=== PATIENT | female | born 1965 | race Hispanic/Latino ===

== ENCOUNTER 2017-07-27 21:32 | Inpatient (IN) | payer SELFPAY ==
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
[2017-07-27] MEDS ORDERED: traMADol HCl 50 MG TAB PO PRN (22:58)
[2017-07-27] MEDS ORDERED: Ondansetron ODT 4 MG TAB PO PRN (22:59)
[2017-07-27] MEDS ORDERED: Ondansetron HCl/PF 4 MG/2 ML Vial IVP PRN (22:59)
[2017-07-27] MEDS ORDERED: Dextrose 5% in Water 1,000 ML IV PRN (22:59)
[2017-07-27] MEDS ORDERED: Dextrose 50% Abboject 50 ML SYRINGE SLOW IVP PRN (22:59)
--- NOTE | 2017-07-27 23:08 | RAD ---
ONE VIEW RIGHT ANKLE: History: Status post reduction. FINDINGS: No significant change when compared to the previous examination. Fiberglass cast is identified. Frac tures are noted. IMPRESSION: No significant change when compared to 07-27-17 at 10:34 p.m. POS: [facility]
--- NOTE | 2017-07-27 23:09 | RAD ---
RIGHT ANKLE THREE VIEWS: History: Post reduction. Comparison: 07-27-17 FINDINGS: There is evidence of a posterior fiberglass splint. Trimalleolar fracture is re-demonstrated. Mild c omponent subluxation is noted. IMPRESSION: Trimalleolar fracture with subluxation. POS: [facility]
--- NOTE | 2017-07-27 23:28 | RAD ---
One view chest: History: Preoperative exam. Ankle fracture. Comparison: 03-01-10 FINDINGS: Normal cardiac silhouette. The pulmonary vessels and hilum are normal. No masses or consolidation. N o pneumothorax or osseous abnormality. IMPRESSION: No acute cardiopulmonary process. POS: [facility]
[2017-07-27 23:29] LABS: Bilirubin Negative (Negative); Blood, Urine Negative (Negative); Glucose, Urine (Dipstick) Negative (Negative); Ketone, Urine Negative (Negative); Nitrite Negative (Negative); Protein, Urine (Dipstick) Negative (Neg-Trace); Urobilinogen 0.2 mg/dL (0.2-1.0)
[2017-07-28 01:31] VITALS: BMI 29.2
[2017-07-28] MEDS: Acetaminophen 500 MG TAB PO SCH ×5 (01:38→23:23)
[2017-07-28 01:39] LABS: #Basophils 0.1 thou/uL (0.0-0.2); #Lymphocytes 1.7 thou/uL (1.20-3.40); #Monocytes 0.3 thou/uL (0.11-0.59); %Basophils 0.8 % (0.0-1.0); %Eosinophils 0.4 % (0.0-10.0); %Lymphocytes 24.3 % (21.0-51.0); %Monocytes 3.8 % (0.0-10.0); Hematocrit 37.2 % (36.0-47.0); Mean Platelet Volume 6.7 fL (7.4-10.4); Red Blood Cell (RBC) Count 3.78 mill/uL (4.20-5.40)
[2017-07-28] MEDS: traMADol HCl 50 MG TAB PO SCH ×5 (01:40→23:24)
[2017-07-28] MEDS: Ketorolac Tromethamine 30 MG/ML VIAL IVP SCH ×5 (01:41→23:24)
[2017-07-28 01:46] LABS: PTT 28.3 SEC (22.9-36.1); Prothrombin Time 15.2 SEC (12.0-14.7)
[2017-07-28 01:57] LABS: Anion Gap 12 mmol/L (10-20); BUN (Urea Nitrogen) 6 mg/dL (9.8-20.1); Calc. Creatinine Clearance 106 mL/min (70-130); Calcium 8.7 mg/dL (7.8-10.44); Carbon Dioxide 23 mmol/L (22-29); Chloride 104 mmol/L (98-107); Estimated GFR-MDRD Greater than 90; Magnesium 1.9 mg/dL (1.6-2.6); Phosphorus 3.1 mg/dL (2.3-4.7)
[2017-07-28] MEDS: Sodium Chloride 0.9% 1,000 ML IV SCH ×3 (02:56→21:01)
[2017-07-28 03:35] LABS: Amphetamine Not Detected (NotDetected); Methadone Not Detected (NotDetected); Methamphetamine Not Detected (NotDetected)
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
[2017-07-28] MEDS: Folic Acid 1 MG TAB PO SCH (10:33)
[2017-07-28] MEDS ORDERED: Neomycin-Polymyxin 1 ML AMP ONE (15:20)
[2017-07-28] MEDS ORDERED: Midazolam HCl 2 mg/2 ml Vial ONE (15:32)
[2017-07-28] MEDS ORDERED: Fentanyl 100 MCG/2 ML VIAL ONE (15:32)
[2017-07-28] MEDS ORDERED: Propofol 200 MG/20 ML VIAL ONE (15:51)
[2017-07-28] MEDS ORDERED: Ketorolac Tromethamine 30 MG/ML VIAL ONE (15:51)
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
[2017-07-28] MEDS ORDERED: Bupivacaine/Epinephrine 0.5% 10 ML VIAL ONE (16:24)
[2017-07-28] MEDS: Oxazepam 10 MG CAP PO SCH ×3 (17:12→23:24)
[2017-07-28] MEDS ORDERED: Ondansetron HCl/PF 4 MG/2 ML Vial IVP PRN ×2 (17:22→17:27)
[2017-07-28] MEDS ORDERED: Promethazine HCl 25 MG/ML VIAL IM PRN (17:22)
[2017-07-28] MEDS ORDERED: Promethazine HCl 25 MG/ML VIAL SLOW IVP PRN (17:22)
[2017-07-28] MEDS ORDERED: Milk Of Magnesia 30 ML UDCUP PO PRN (17:27)
[2017-07-28] MEDS ORDERED: Fleet Enema 133 ML BOT PR PRN (17:27)
[2017-07-28] MEDS ORDERED: Bisacodyl 10 MG SUPP PR PRN (17:27)
[2017-07-28] MEDS ORDERED: Cepastat Lozenges 1 LOZ PO PRN (17:27)
[2017-07-28] MEDS ORDERED: Ondansetron ODT 4 MG TAB PO PRN (17:27)
--- NOTE | 2017-07-28 19:13 | RAD ---
RIGHT ANKLE THREE VIEWS: HISTORY: A 52-year-old female following ORIF right ankle. COMPARISON: 07/27/2017. FINDINGS/IMPRESSION: Metal plate and screws stabilize the lateral malleolus, and two internal fixation screws stabilize t he medial malleolus with improved position and alignment of the trimalleolar fracture dislocation wh en compared to the prior study. POS: [facility]
--- NOTE | 2017-07-28 20:24 | OP ---
DATE OF PROCEDURE: 07/28/2017 PREOPERATIVE DIAGNOSIS: Status post trimalleolar fracture dislocation, right ankle. POSTOPERATIVE DIAGNOSIS: Status post trimalleolar fracture dislocation, right ankle. PROCEDURE: Open reduction and internal fixation, trimalleolar fracture of the right ankle. SURGEON: Aditya Cole M.D. ANESTHESIA: General. TECHNIQUE: The patient was given preoperative IV antibiotics, taken to the operating room and place d in the supine position. Satisfactory general anesthesia was performed. The right foot, ankle, an d leg were sterilely prepped and draped in the usual fashion. After exsanguination, the tourniquet at the proximal right leg was raised to 200 mmHg. A longitudinal incision was made over the lateral aspect of the ankle over the distal fibula. Blunt and sharp dissection was made down to the distal fibula. The patient was noted to have an oblique fracture. The fracture was held reduced with a carlos ne clamp and initially internally fixed with a 3.5 cortical screw in a lag fashion. A 3-hole distal fibular [employer] locking plate was then inserted over the lateral aspect of the distal [facility] using two 3.5 cortical screws in the shaft of the fibula. Six additional 2.7 locking screws wer e placed distally and a 3.5 locking screw was placed in the most proximal hole. This was all perfor med under fluoroscopic visualization and showed anatomic alignment of the distal fibula fracture. A n incision was made on the medial aspect of the ankle approximately 3.5 cm in length. Blunt and sha rp dissection was made down to the medial malleolus. The fracture was identified, was reduced, held reduced with a small bone clamp and internally fixed with two 4.0 cannulated screws. This also was performed under fluoroscopic visualization. This provided anatomic alignment of the ankle, the pos terior malleolar fracture after the medial and lateral malleoli were reduced and stabilized. [employer] Administrator ior malleolus was found to be in good position and good alignment and did not require internal fixat ion. The wounds were then copiously irrigated with antibiotic solution and the wounds were closed u sing 0 Vicryl for the fat and subcutaneous tissue, and the skin was closed with 3-0 Rapide. The wou nds were then infiltrated with a total of 30 mL of 0.5% Marcaine with epinephrine. Sterile dressing was applied. The patient was placed in a boot. Tourniquet was released. The patient was awakened , extubated, and transferred to the recovery room in stable condition. ESTIMATED BLOOD LOSS: 20 mL COMPLICATIONS: None.
[2017-07-28] MEDS: Senokot S 8.6-50 MG TAB PO SCH (20:53)
[2017-07-28] MEDS: Ferrous Gluconate 324 MG TAB PO SCH (20:53)
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
[2017-07-29] MEDS: Acetaminophen 500 MG TAB PO SCH ×2 (05:41→12:02)
[2017-07-29] MEDS: Oxazepam 10 MG CAP PO SCH ×2 (05:41→12:03)
[2017-07-29] MEDS: traMADol HCl 50 MG TAB PO SCH ×2 (05:42→12:02)
[2017-07-29] MEDS: Ketorolac Tromethamine 30 MG/ML VIAL IVP SCH ×2 (05:43→12:12)
[2017-07-29] MEDS: Sodium Chloride 0.9% 1,000 ML IV SCH (05:51)
[2017-07-29] MEDS: Ferrous Gluconate 324 MG TAB PO SCH (08:27)
[2017-07-29] MEDS: Folic Acid 1 MG TAB PO SCH (08:28)
[2017-07-29] MEDS: Senokot S 8.6-50 MG TAB PO SCH (08:28)
[2017-07-29 08:59] VITALS: BP 128/86; TEMP 98
[2017-07-29] MEDS ORDERED: Multivitamin W/ Minerals 1 TAB PO SCH (09:00)
[2017-07-29] MEDS ORDERED: Ibuprofen 800 MG TAB PO PRN (09:48)
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
--- NOTE | 2017-08-02 11:45 | EKG ---
Test Reason : Blood Pressure : / mmHG Vent. Rate : 073 BPM Atrial Rate : 073 BPM P-R Int : 144 ms QRS Dur : 074 ms QT Int : 408 ms P-R-T Axes : 042 046 043 degrees QTc Int : 449 ms Normal sinus rhythm Normal ECG Confirmed by DONNY KONG, GURINDER ([id number]), news assignment editor MARVIN WELLS ([id number]) on 08/02/2017 11:45:13 AM Referred By: Confirmed By:GURINDER HINES MD
== END 2017-07-29 13:40 | disposition home or self-care (01) | DRG 494 ==
LOC: ERS 21:32 → OBSVTOIN 23:00 → SURG A 23:00
PROVIDERS: ADMIT Surgery; ATTEND Surgery
PROC: 0QSJ04Z Reposition Right Fibula with Internal Fixation Device, Open Approach (ICD-10-PCS; principal; 2017-07-28)
PROC: 0QSG04Z Reposition Right Tibia with Internal Fixation Device, Open Approach (ICD-10-PCS; 2017-07-28)
DX: S82.851A Displaced trimalleolar fracture of right lower leg, initial encounter for closed fracture (principal); I10 Essential (primary) hypertension; F10.120 Alcohol abuse with intoxication, uncomplicated; F17.210 Nicotine dependence, cigarettes, uncomplicated; Y90.8 Blood alcohol level of 240 mg/100 ml or more; Y93.39 Activity, other involving climbing, rappelling and jumping off
CPT/HCPCS: 27818; 71010; 76001; 80048; 80306; 80307; 81003; 83735; 84100; 84703; 85025; 85610; 85730; 93005; C1713; C1769; G0390; G8978-GP-CK; G8979-GP-CK; G8980-GP-CK; J1885; J2250; J2270; J2704; J3010; J3490

== ENCOUNTER 2017-08-16 17:36 | Inpatient (IN) | payer SELFPAY ==
[2017-08-16 18:26] LABS: #Eosinphils 0.1 thou/uL (0.0-0.7); #Lymphocytes 1.6 thou/uL (1.20-3.40); #Monocytes 0.6 thou/uL (0.11-0.59); #Neutrophils 3.2 thou/uL (1.40-6.50); %Basophils 0.9 % (0.0-1.0); %Eosinophils 2.2 % (0.0-10.0); %Lymphocytes 28.2 % (21.0-51.0); %Monocytes 10.2 % (0.0-10.0); Hematocrit 38.7 % (36.0-47.0); Mean Platelet Volume 7.1 fL (7.4-10.4); Red Blood Cell (RBC) Count 3.88 mill/uL (4.20-5.40); White Blood Cell (WBC) Count 5.5 thou/uL (4.8-10.8)
[2017-08-16 18:50] LABS: ALT (SGPT) 44 U/L (8-55); AST (SGOT) 37 U/L (5-34); Alkaline Phosphatase 99 U/L (40-150); Anion Gap 13 mmol/L (10-20); BUN (Urea Nitrogen) 22 mg/dL (9.8-20.1); Bilirubin, Total 0.6 mg/dL (0.2-1.2); Calc. Creatinine Clearance 0 mL/min (70-130); Calcium 9.9 mg/dL (7.8-10.44); Carbon Dioxide 27 mmol/L (22-29); Chloride 104 mmol/L (98-107); Estimated GFR-MDRD 72; Globulin 4.3 g/dL (2.4-3.5); Protein, Total 8.1 g/dL (6.0-8.3)
--- NOTE | 2017-08-16 20:51 | RAD ---
RIGHT ANKLE THREE VIEWS: 08/16/17 HISTORY: Ankle pain. The patient is status post open reduction and internal fixation of a bimalleolar fracture. Medial ma lleolar fracture fixed with screws and plate and screws fixing the distal fibular fracture. There al so appears to be a posterior malleolar fracture present. I do not see any definite acute process. IMPRESSION: Postoperative changes. POS: [facility]
[2017-08-16] MEDS ORDERED: Piperacillin/Tazobactam 3.375 GM in Sodium Chloride 0.9% 100 ML IVPB SCH (21:30)
[2017-08-16] MEDS ORDERED: Ondansetron HCl/PF 4 MG/2 ML Vial IVP PRN (23:41)
[2017-08-16] MEDS ORDERED: Ondansetron ODT 4 MG TAB SL PRN (23:41)
[2017-08-16 23:57] VITALS: BMI 26.4
[2017-08-17] MEDS ORDERED: Morphine 2 MG/ML SYRINGE SLOW IVP PRN (08:15)
[2017-08-17] MEDS ORDERED: Ketorolac Tromethamine 30 MG/ML VIAL IVP PRN (08:20)
--- NOTE | 2017-08-17 09:27 | HP ---
HISTORY OF PRESENT ILLNESS: The patient underwent an ankle repair on 07/28/[address] Aditya Cole . She was doing well until about 3-5 days ago, her granddaughter is over and ran into her leg, slip ped down into her leg and she had some pain in that ankle. She had been cleaning the ankle with hyd rogen peroxide to keep it clean, but it continued to open up and now has some discharge coming from it. She was admitted last night. We gave Dr. Cole a call, but he is out of town. I informed th e patient, thus she is okay with us taking care of her until Dr. Cole returns. PAST MEDICAL HISTORY: Unchanged from her last visit on 07/28/2017. PAST SURGICAL HISTORY: Unchanged from her last visit on 07/28/2017. FAMILY HISTORY: Unchanged from her last visit on 07/28/2017. SOCIAL HISTORY: Unchanged from her last visit on 07/28/2017. MEDICATIONS: Unchanged from her last visit on 07/28/2017. ALLERGIES: Unchanged from her last visit on 07/28/2017. REVIEW OF SYSTEMS: Only complaint is that right ankle. Otherwise, denies chest pain, shortness of breath, bowel or bladder problems. PHYSICAL EXAMINATION: GENERAL: Well-nourished female in no acute distress. Speech is clear. Affect pleasant. Answers q uestions appropriately. She is alert and oriented x3. HEENT: Normal exam. NECK: Supple, trachea midline. EXTREMITIES: Upper extremities, equal size, shape, symmetry, normal bulk and tone, moving well. Lo wer extremities; on the right lateral malleolus, she does have an open wound, probably about a quart er size with some eschar present and a little bit of green clear discharge. Area is tender to palpa tion. She does have some mild erythema above the area. She has got good sensations to the rest of the right lower extremity. DP, PT pulses bilaterally are intact. ASSESSMENT: Right ankle wound infection secondary to surgery on 07/28/2017. PLAN: I spoke with patient. She is okay with us helping her out with this particular situation til kirby Cole returns and further plan is to do an I\T\D washout of that wound. Once it is opened, we will check screws; if they are tight, we will not remove them. If they are loose at all, we may have to remove the entire hardware around that side. We will pack the wound open today and then jazmyne n on wound VAC tomorrow. She has already been placed on some antibiotics. We will probably get jhony e cultures deep once we get in there also. The patient understands the plan and she is amenable to go forth with surgery.
[2017-08-17] MEDS ORDERED: Midazolam HCl 2 mg/2 ml Vial ONE (14:13)
[2017-08-17] MEDS ORDERED: Fentanyl 100 MCG/2 ML VIAL ONE (14:13)
[2017-08-17] MEDS ORDERED: Lidocaine 1% (PF) 30 ML VIAL ONE (15:19)
[2017-08-17] MEDS ORDERED: Ondansetron HCl/PF 4 MG/2 ML Vial ONE (15:42)
[2017-08-17] MEDS ORDERED: Dexamethasone 20 MG/5 ML VIAL ONE (15:42)
[2017-08-17] MEDS ORDERED: Lidocaine 2% PF 10 ML AMP (For Epidural Use) ONE (15:42)
[2017-08-17] MEDS ORDERED: Propofol 200 MG/20 ML VIAL ONE (15:42)
[2017-08-17] MEDS ORDERED: Promethazine HCl 25 MG/ML VIAL IM PRN (16:25)
[2017-08-17] MEDS ORDERED: Ondansetron HCl/PF 4 MG/2 ML Vial IVP PRN (16:25)
[2017-08-17] MEDS ORDERED: HYDROmorphone 2 MG/ML VIAL SLOW IVP PRN (16:25)
[2017-08-17] MEDS ORDERED: Promethazine HCl 25 MG/ML VIAL SLOW IVP PRN (16:25)
[2017-08-17] MEDS: Piperacillin/Tazobactam 3.375 GM, Admixture Fee 1 EACH in Sodium Chloride 0.9% 100 ML IVPB SCH (18:31)
--- NOTE | 2017-08-17 23:19 | OP ---
DATE OF PROCEDURE: 08/17/2017 PROCEDURES PERFORMED: Irrigation and debridement of abscess, right ankle; removal of hardware, righ t ankle. SURGEON: Tommie Fuentes M.D. ANESTHESIA: General. BLOOD LOSS: Minimal. SPECIMEN: Culture. DRAINS: None. COMPLICATIONS: None. DESCRIPTION OF PROCEDURE: The patient was taken to the operating room where general anesthesia was induced. Right leg was prepped and draped in the usual sterile fashion. After exsanguination by el evation, tourniquet was inflated. I debrided the necrotic margins of the wound, hardware was visibl e in the base of the wound to remove fibrinous tissue. I checked the screws and the plate and found 1 screw was the spinner and was loose. This was in the very center of the defect. The screw was r emoved. I left the proximal and distal screws as they appeared to be giving good stability to the f racture and this should enhance the healing. Five liters of irrigation was performed. I did take c ultures prior to irrigation. Tourniquet was released. Irrigation was performed again. Hemostasis was obtained. The wound was left open. Plan is for postoperative wound VAC, I placed on vancomycin and Zosyn.
[2017-08-18] MEDS: Piperacillin/Tazobactam 3.375 GM, Admixture Fee 1 EACH in Sodium Chloride 0.9% 100 ML IVPB SCH ×4 (00:23→19:11)
[2017-08-18] MEDS: Vancomycin HCl 1 GM in Premix Bag 1 BAG IVPB SCH ×2 (02:26→14:31)
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
[2017-08-18] MEDS: HYDROcodone/Acetaminophen 10/325 mg Tablet PO PRN (18:29)
[2017-08-19] MEDS: Piperacillin/Tazobactam 3.375 GM, Admixture Fee 1 EACH in Sodium Chloride 0.9% 100 ML IVPB SCH ×5 (00:23→20:30)
[2017-08-19 02:18] LABS: Vancomycin, Trough 13.8 ug/mL
[2017-08-19] MEDS: Vancomycin HCl 1 GM in Premix Bag 1 BAG IVPB SCH ×3 (03:25→19:09)
[2017-08-19] MEDS: HYDROcodone/Acetaminophen 10/325 mg Tablet PO PRN ×2 (08:29→19:09)
[2017-08-19] MEDS: Multivit, Therapeutic 1 TAB PO SCH (08:32)
[2017-08-19] MEDS: Zinc Sulfate 220 MG CAP PO SCH (08:32)
[2017-08-20] MEDS: Piperacillin/Tazobactam 3.375 GM, Admixture Fee 1 EACH in Sodium Chloride 0.9% 100 ML IVPB SCH ×3 (02:12→13:57)
[2017-08-20] MEDS: Vancomycin HCl 1 GM in Premix Bag 1 BAG IVPB SCH (05:42)
[2017-08-20] MEDS: Multivit, Therapeutic 1 TAB PO SCH (08:04)
[2017-08-20] MEDS: Zinc Sulfate 220 MG CAP PO SCH (08:04)
[2017-08-20 12:17] VITALS: BP 133/87; TEMP 98.5
--- NOTE | 2017-08-20 17:41 | DIS ---
DATE OF ADMISSION: 08/16/2017 DATE OF DISCHARGE: 08/20/2017 HISTORY OF PRESENT ILLNESS: Please see admission history and physical. HOSPITAL COURSE: Patient was initially evaluated in the emergency room, she was noted to have posto perative infection. She was taken to the operating room on 08/17/2017 where she underwent irrigatio n and debridement of the lateral wound of the right ankle. Deep cultures were obtained. The patien t was placed on a wound VAC. The patient remained afebrile and vital signs remained stable during t he entire hospital course. She was started on IV antibiotics. Culture reports came back as Enterob acter cloacae, which was sensitive to multiple antibiotics including Bactrim. The patient was able to control her pain with p.o. medication. She will be discharged today. DISCHARGE MEDICATIONS: Bactrim-DS 1 p.o. b.i.d. #40, Tylenol #4 one every 6 hours as needed for mary n, #40 with one refill. Follow up in my office in 1 week. The patient will continue with local wou nd care. She will continue to be nonweightbearing on the right lower extremity to allow the fractur es in her ankle to heal.
== END 2017-08-20 16:08 | disposition home or self-care (01) | DRG 857 ==
LOC: ERS 17:36 → SURG A 22:10
PROVIDERS: ADMIT Radiology Diagnostic Radiology; ATTEND Radiology Diagnostic Radiology
PROC: 0SPF04Z Removal of Internal Fixation Device from Right Ankle Joint, Open Approach (ICD-10-PCS; principal; 2017-08-16)
DX: T81.4XXA Infection following a procedure, initial encounter (principal); T84.126A Displacement of internal fixation device of bone of right lower leg, initial encounter; I10 Essential (primary) hypertension; L02.415 Cutaneous abscess of right lower limb; B96.89 Other specified bacterial agents as the cause of diseases classified elsewhere
CPT/HCPCS: 36415; 80053; 80202; 83605; 85025; 87040; 87070; 87077; 87186; 87205; 96365; 96367; A4216; J1100; J1885; J2001; J2250; J2270; J2405; J2543; J2704; J3010; J3370; J7050

== ENCOUNTER 2017-08-28 14:44 | Outpatient (CLI) | payer SELFPAY ==
[2017-08-28] MEDS ORDERED: Sodium Chloride 0.9% 15 ML NEB ONE (17:54)
== END 2017-08-28 14:45 | disposition home or self-care (01) ==
LOC: WCC 14:44
PROVIDERS: ATTEND Family Medicine
DX: T81.89XD Other complications of procedures, not elsewhere classified, subsequent encounter (principal)
CPT/HCPCS: 97605; A4218

== ENCOUNTER 2017-09-01 14:14 | Outpatient (CLI) | payer SELFPAY | END 2017-09-01 14:15 | disposition home or self-care (01) | LOC: WCC 14:14 | PROVIDERS: ATTEND Family Medicine | DX: T81.89XD Other complications of procedures, not elsewhere classified, subsequent encounter (principal) | CPT/HCPCS: 97605 ==

== ENCOUNTER 2017-09-11 13:28 | Outpatient (CLI) | payer SELFPAY ==
[~2017-09-11 13:28] MED LIST: Sodium Chloride 0.9% 15 ML NEB ONE
== END 2017-09-11 13:29 | disposition home or self-care (01) ==
LOC: WCC 13:28
PROVIDERS: ATTEND Family Medicine
DX: T81.89XD Other complications of procedures, not elsewhere classified, subsequent encounter (principal)
CPT/HCPCS: 97605; A4218

== ENCOUNTER 2017-09-15 11:55 | Outpatient (CLI) | payer SELFPAY ==
[2017-09-15] MEDS ORDERED: Lidocaine 4% Topical Sol 50 ML BOT ONE (14:51)
[2017-09-15] MEDS ORDERED: Sodium Chloride 0.9% 15 ML NEB ONE (14:51)
== END 2017-09-15 11:56 | disposition home or self-care (01) ==
LOC: WCC 11:55
PROVIDERS: ATTEND Family Medicine
DX: T81.89XD Other complications of procedures, not elsewhere classified, subsequent encounter (principal); S91.001D Unspecified open wound, right ankle, subsequent encounter
CPT/HCPCS: 97605; A4218; J2001

== ENCOUNTER 2017-09-17 07:31 | Outpatient (CLI) | payer SELFPAY ==
[2017-09-17] MEDS ORDERED: Lidocaine 4% Topical Sol 50 ML BOT ONE (17:44)
[2017-09-17] MEDS ORDERED: Sodium Chloride 0.9% 15 ML NEB ONE (17:44)
== END 2017-09-17 07:32 | disposition home or self-care (01) ==
LOC: WCC 07:31
PROVIDERS: ATTEND Family Medicine
DX: T81.89XD Other complications of procedures, not elsewhere classified, subsequent encounter (principal); S91.001D Unspecified open wound, right ankle, subsequent encounter
CPT/HCPCS: 97606; A4218; J2001

== ENCOUNTER 2017-09-19 03:39 | Emergency (ER) | payer SELFPAY ==
[2017-09-19] MEDS ORDERED: Ketorolac Tromethamine 30 MG/ML VIAL ONE (04:16)
[2017-09-19] MEDS ORDERED: Piperacillin/Tazobactam 3.375 GM in Sodium Chloride 0.9% 100 ML IVPB SCH (04:30)
== END 2017-09-19 06:15 | disposition home or self-care (01) ==
LOC: ERS 03:39
DX: L03.115 Cellulitis of right lower limb (principal); I10 Essential (primary) hypertension
CPT/HCPCS: 96365; 96367; 96375; J1885; J2543; J3370; J7050

== ENCOUNTER 2017-10-06 13:44 | Outpatient (CLI) | payer OTHER, SELFPAY | END 2017-10-06 13:45 | disposition home or self-care (01) | LOC: WCC 13:44 | PROVIDERS: ATTEND Family Medicine | DX: T81.89XD Other complications of procedures, not elsewhere classified, subsequent encounter (principal) | CPT/HCPCS: 97605 ==

== ENCOUNTER 2017-10-09 13:39 | Outpatient (CLI) | payer OTHER ==
--- NOTE | 2017-10-09 14:40 | PRG ---
DATE OF SERVICE: 10/09/2017 HISTORY: Ms. Amparo Alvarez is a very pleasant 52-year-old, who presents to the [facility] for eval uation of a wound of the right lateral ankle, subsequent to irrigation and debridement of an abscess of the right ankle on 08/17/2017. At the time of surgery, the patient also underwent removal of hard briones. Previously on 07/28/2017, the patient underwent ORIF of a trimalleolar fracture of the right a nkle. Both surgical procedures were performed at [facility]. Subsequent to s jeff on 08/17/2017, negative pressure therapy was initiated and upon discharge from [facility], the patient was referred to the Wound Center for assistance with dressing changes of the wound VAC. PHYSICAL EXAMINATION: VITAL SIGNS: Temperature is 97.5, pulse 60, respirations 17, blood pressure 172/81. EXTREMITIES: A wound of the right lateral ankle is present, which measures approximately 0.6 x 1.2 c m. Granulation tissue is visible within the wound margins. Hardware is also visible within the woun d margins. No purulent drainage is associated with the wound. No erythema of the skin surrounding t he wound is present. No maceration of the skin of the periwound is noted. A dorsalis pedis pulse is easily palpable on the right. No significant edema of the right foot or lower leg is present on exa m today. ASSESSMENT AND PLAN: 1. Right ankle wound as described above. Negative pressure therapy will be continued with dressing changes of the wound VAC 2 times per week here in the Wound Center. The patient has a followup appoi ntment with Orthopedic Surgery in 1 week. I will see Ms. Alvarez again in 4 weeks. 2. History of cirrhosis. 3. Hypertension.
== END 2017-10-09 13:40 | disposition home or self-care (01) ==
LOC: WCC 13:39
PROVIDERS: ATTEND Family Medicine
DX: T81.89XD Other complications of procedures, not elsewhere classified, subsequent encounter (principal); I10 Essential (primary) hypertension
CPT/HCPCS: 97605

== ENCOUNTER 2017-10-13 11:14 | Outpatient (CLI) | payer OTHER, SELFPAY | END 2017-10-13 11:15 | disposition home or self-care (01) | LOC: WCC 11:14 | PROVIDERS: ATTEND Family Medicine | DX: T81.89XD Other complications of procedures, not elsewhere classified, subsequent encounter (principal) | CPT/HCPCS: 97605 ==

== ENCOUNTER 2017-10-15 11:02 | Outpatient (CLI) | payer OTHER ==
[2017-10-15] MEDS ORDERED: Sodium Chloride 0.9% 15 ML NEB ONE (21:22)
== END 2017-10-15 11:03 | disposition home or self-care (01) ==
LOC: WCC 11:02
PROVIDERS: ATTEND Family Medicine
DX: T81.89XD Other complications of procedures, not elsewhere classified, subsequent encounter (principal)
CPT/HCPCS: 97605; A4218

== ENCOUNTER 2017-10-21 09:22 | Outpatient (CLI) | payer OTHER, SELFPAY ==
[2017-10-21] MEDS ORDERED: Sodium Chloride 0.9% 15 ML NEB ONE (14:37)
== END 2017-10-21 09:23 | disposition home or self-care (01) ==
LOC: WCC 09:22
PROVIDERS: ATTEND Family Medicine
DX: T81.89XD Other complications of procedures, not elsewhere classified, subsequent encounter (principal)
CPT/HCPCS: 97605; A4218

== ENCOUNTER 2017-10-23 09:11 | Outpatient (CLI) | payer OTHER ==
[2017-10-23] MEDS ORDERED: Sodium Chloride 0.9% 15 ML NEB ONE (13:46)
== END 2017-10-23 09:12 | disposition home or self-care (01) ==
LOC: WCC 09:11
PROVIDERS: ATTEND Family Medicine
DX: T81.89XD Other complications of procedures, not elsewhere classified, subsequent encounter (principal)
CPT/HCPCS: 97605; A4218

== ENCOUNTER 2017-10-28 12:02 | Outpatient (CLI) | payer OTHER | END 2017-10-28 12:03 | disposition home or self-care (01) | LOC: WCC 12:02 | PROVIDERS: ATTEND Family Medicine | DX: T81.89XD Other complications of procedures, not elsewhere classified, subsequent encounter (principal) | CPT/HCPCS: 97605; A4218 ==

== ENCOUNTER 2017-10-30 14:49 | Outpatient (CLI) | payer OTHER | END 2017-10-30 14:50 | disposition home or self-care (01) | LOC: WCC 14:49 | PROVIDERS: ATTEND Family Medicine | DX: T81.89XD Other complications of procedures, not elsewhere classified, subsequent encounter (principal) | CPT/HCPCS: 97605; A4218 ==

== ENCOUNTER 2018-04-03 14:01 | Outpatient (CLI) | payer OTHER, SELFPAY ==
[2018-04-03 14:40] LABS: Hemoglobin 14.6 g/dL (12.0-16.0); Mean Corpuscular HGB CONC 34.6 g/dL (32.0-36.0); Mean Corpuscular Hemoglobin 34.3 pg (27.0-31.0); Mean Platelet Volume 7.6 fL (7.4-10.4); Platelet Count 136 thou/uL (130-400); RBC Distribution Width 11.8 % (11.5-14.5); Red Blood Cell (RBC) Count 4.26 mill/uL (4.20-5.40); White Blood Cell (WBC) Count 4.5 thou/uL (4.8-10.8)
[2018-04-03 14:45] LABS: INR-International Normal Ratio 1.1; PTT 27.5 SEC (22.9-36.1); Prothrombin Time 13.9 SEC (12.0-14.7)
[2018-04-03 14:58] LABS: ALT (SGPT) 34 U/L (8-55); AST (SGOT) 31 U/L (5-34); Albumin 4.2 g/dL (3.5-5.0); Alkaline Phosphatase 86 U/L (40-150); Bilirubin, Direct 0.3 mg/dL (0.1-0.3); Bilirubin, Total 0.7 mg/dL (0.2-1.2); Protein, Total 7.6 g/dL (6.0-8.3)
== END 2018-04-03 14:02 | disposition home or self-care (01) ==
LOC: WCC 14:01
PROVIDERS: ATTEND Family Medicine
DX: S91.001D Unspecified open wound, right ankle, subsequent encounter (principal)
CPT/HCPCS: 80076; 85027; 85610; 85730; 93005; 93010

== ENCOUNTER 2018-04-07 11:21 | Inpatient (IN) | payer OTHER, SELFPAY ==
[2018-04-03 14:36] VITALS: BMI 28.5
[2018-04-07] MEDS ORDERED: PROPOFOL 200 MG/20 ML VIAL ONE (11:41)
[2018-04-07] MEDS ORDERED: Ketorolac Tromethamine 30 MG/ML VIAL ONE (11:41)
[2018-04-07] MEDS ORDERED: Dexamethasone 20 MG/5 ML VIAL ONE (11:41)
[2018-04-07] MEDS ORDERED: Ondansetron HCl/PF 4 MG/2 ML Vial ONE (11:41)
[2018-04-07] MEDS ORDERED: Lidocaine 1% PF 5 ML VIAL ONE (11:41)
[2018-04-07] MEDS ORDERED: Neomycin-Polymyxin 1 ML AMP ONE (14:39)
[2018-04-07] MEDS ORDERED: Fentanyl 100 MCG/2 ML VIAL ONE ×3 (14:49→16:45)
[2018-04-07] MEDS ORDERED: HYDROcodone/Acetaminophen 10/325 mg Tablet PO PRN (16:25)
[2018-04-07] MEDS ORDERED: Acetaminophen 325 MG TAB PO PRN (16:25)
[2018-04-07] MEDS ORDERED: Ondansetron HCl/PF 4 MG/2 ML Vial IV PRN (16:25)
[2018-04-07] MEDS ORDERED: traMADol HCl 50 MG TAB PO PRN ×2 (16:25)
[2018-04-07] MEDS ORDERED: TETANUS AND DIPHTHERIA TOX/PF 0.5 ML DISP.SYRIN IM SCH (16:30)
[2018-04-07] MEDS ORDERED: Communication Order-Pharmacy FS SCH (16:30)
[2018-04-07] MEDS ORDERED: cloNIDine 0.1 MG TAB PO PRN (18:02)
[2018-04-07] MEDS ORDERED: hydrALAZINE 20 MG/ML VIAL SLOW IVP PRN (18:02)
[2018-04-07] MEDS ORDERED: hydrALAZINE 20 MG/ML VIAL SLOW IVP SCH (18:15)
--- NOTE | 2018-04-07 18:22 | PDOC.PN ---
- Subjective Encounter Start Date: 04/07/18 Encounter Start Time: 18:21 Subjective: feels well. denies any CP/SOB/Fever/chills -: s/p removal of hardware from R ankle d/t discharge & failure OP ABx -: IM team consulted for high bp reoprts controlled Bp with Lisinopril at home - Objective MAR Reviewed: Yes Vital Signs & Weight: Vital Signs (12 hours) Temp Pulse Resp BP Pulse Ox 04/07/18 17:30 98.1 F 66 18 196/100 H 97 Weight Weight 151 lb Additional Labs: labs reviewed Phys Exam - Physical Examination Constitutional: NAD HEENT: PERRLA, moist MMs, sclera anicteric, oral pharynx no lesions Neck: no nodes, no JVD, supple, full ROM Respiratory: no wheezing, no rales, no rhonchi, clear to auscultation bilateral Cardiovascular: RRR, no significant murmur, no rub Gastrointestinal: soft, non-tender, no distention, positive bowel sounds Musculoskeletal: no edema, pulses present Neurological: non-focal, normal sensation, moves all 4 limbs Psychiatric: normal affect, A&O x 3 Skin: no rash Dx/Plan (1) Uncontrolled hypertension Code(s): I10 - ESSENTIAL (PRIMARY) HYPERTENSION Status: Acute (2) S/P hardware removal Code(s): Z98.890 - OTHER SPECIFIED POSTPROCEDURAL STATES Status: Acute Comment: R ankle - Plan DVT proph w/SCDs Add prn antihypertensives.cont lisinopril.Monitor -: am labs -: ABx and Cx per rpimary team -: IM team will follow.Hemodynamically stable * . Review of Systems - Review of Systems Constitutional: negative: fever, chills, sweats, weakness, malaise, other ENT: negative: Ear Pain, Ear Discharge, Nose Pain, Nose Discharge, Nose Congestion, Mouth Pain, Mouth Swelling, Throat Pain, Throat Swelling, Other Respiratory: negative: Cough, Dry, Shortness of Breath, Hemoptysis, SOB with Excertion, Pleuritic Pain, Sputum, Wheezing Cardiovascular: negative: chest pain, palpitations, orthopnea, paroxysmal nocturnal dyspnea, edema, light headedness, other Gastrointestinal: negative: Nausea, Vomiting, Abdominal Pain, Diarrhea, Constipation, Melena, Hematochezia, Other Genitourinary: negative: Dysuria, Frequency, Incontinence, Hematuria, Retention , Other Musculoskeletal: negative: Neck Pain, Shoulder Pain, Arm Pain, Back Pain, Hand Pain, Leg Pain, Foot Pain, Other Skin: negative: Rash, Lesions, West, Bruising, Other Neurological: negative: Weakness, Numbness, Incoordination, Change in Speech, Confusion, Seizures, Other - Medications/Allergies Allergies/Adverse Reactions: Allergies Allergy/AdvReac Type Severity Reaction Status Date / Time No Known Drug Allergies Allergy Verified 04/03/18 14:22 Medications: Current Medications Acetaminophen (Tylenol) 650 mg PO Q6H PRN PRN Reason: Headache/Temp >101F/Mild Pain Hydrocodone Bitart/Acetaminophen ([place] 10/325) 1 tab PO Q4H PRN PRN Reason: Moderate Pain (4-6) Hydrocodone Bitart/Acetaminophen ([place] 10/325) 2 tab PO Q4H PRN PRN Reason: Severe Pain (7-10) Aspirin (Ecotrin) 81 mg PO BID [facility] Clonidine (Catapres) 0.1 mg PO Q4H PRN PRN Reason: SBP>160 Hydralazine HCl (Apresoline) 10 mg SLOW IVP NOW [facility] Stop: 04/07/18 20:15 Hydralazine HCl (Apresoline) 10 mg SLOW IVP Q4H PRN PRN Reason: SBP>170 Cefazolin Sodium 1 gm/ Sodium (Chloride) 100 mls @ 200 mls/hr IVPB Q8HR [facility] Stop: 04/12/18 14:29 Levofloxacin (Levaquin) 750 mg PO 0600 [facility] Stop: 04/12/18 06:01 Lisinopril (Zestril) 10 mg PO DAILY [facility] Miscellaneous Information (Communication Order-Pharmacy) 1 each FS ONE [facility] Stop: 04/17/18 16:31 Morphine Sulfate (Morphine) 2 mg IVP Q2H PRN PRN Reason: Moderate Pain (4-6) Morphine Sulfate (Morphine) 4 mg IVP Q2H PRN PRN Reason: Severe Pain (7-10) Multivitamins (Theragran) 1 tab PO DAILY [facility] Ondansetron HCl (Zofran) 4 mg PO Q6H PRN PRN Reason: Nausea Ondansetron HCl (Zofran) 4 mg IV Q6H PRN PRN Reason: Nausea Sodium Chloride (Flush - Normal Saline) 10 ml IVF PRN PRN PRN Reason: Saline Flush Tramadol HCl (Ultram) 100 mg PO Q6H PRN PRN Reason: Moderate Pain (4-6) Tramadol HCl (Ultram) 50 mg PO Q6H PRN PRN Reason: Mild Pain (1-3)
[2018-04-07] MEDS: Aspirin 81 mg Enteric Coated Tablet PO SCH (21:11)
[2018-04-07] MEDS: CEFAZOLIN 1 GM in Sodium Chloride 0.9% 100 ML IVPB SCH (21:12)
--- NOTE | 2018-04-07 22:55 | OP ---
DATE OF PROCEDURE: 04/07/2018 PREOPERATIVE DIAGNOSIS: Deep infection of the distal right fibula with retained hardware including p late and 8 screws. POSTOPERATIVE DIAGNOSIS: Deep infection of the distal right fibula with retained hardware including plate and 8 screws. PROCEDURES: Removal of hardware (plate and 8 screws) from the right distal fibula, obtaining deep cu ltures, and irrigation and debridement of the right distal fibula and lateral ankle. SURGEON: Aditya Cole MD ANESTHESIA: General. DESCRIPTION OF PROCEDURE: The patient was not given preoperative IV antibiotics. She was taken to [facility] operating room and placed in supine position. Satisfactory general anesthesia was performed. The right lower extremity was sterilely prepped and draped in usual fashion. After exsanguination, tour niquet at the right mid thigh was raised to 250 mmHg and a longitudinal incision was made over the la teral aspect of the ankle. The patient had two small open wounds. They were marked. The plate and screws were identified and were removed. One of the screws have been placed in a lag fashion was loc ated with the C-arm and was easily removed. The deeper tissue in and over the bone was sent for cult ure and sensitivity. Two specimens were sent, after which, the patient got IV antibiotics. The woun ds and the screw holes were debrided with a curette and the entire wound and distal fibula was copiou sly irrigated with antibiotic solution using the high-speed cutting machine tender helper. The wound looked very clean a fter that. The wound was then loosely closed using 2-0 nylon in interrupted vertical mattress suture s. Sterile dressing was applied. Tourniquet was released. The patient was awakened, extubated, and transferred to recovery room in stable condition. ESTIMATED BLOOD LOSS: None. COMPLICATIONS: None. TOURNIQUET TIME: 37 minutes.
[2018-04-08 04:59] LABS: Anion Gap 12 mmol/L (10-20); BUN (Urea Nitrogen) 14 mg/dL (9.8-20.1); Calc. Creatinine Clearance 99 mL/min (70-130); Carbon Dioxide 25 mmol/L (22-29); Chloride 105 mmol/L (98-107); Estimated GFR-MDRD 87; Glucose 149 mg/dL (70-105); Potassium 4.4 mmol/L (3.5-5.1); Sodium 138 mmol/L (136-145)
[2018-04-08 05:07] LABS: #Lymphocytes 0.6 thou/uL (1.20-3.40); #Monocytes 0.3 thou/uL (0.11-0.59); #Neutrophils 4.4 thou/uL (1.40-6.50); %Basophils 0.2 % (0.0-1.0); %Eosinophils 0.1 % (0.0-10.0); %Lymphocytes 11.7 % (21.0-51.0); %Monocytes 5.2 % (0.0-10.0); %Neutrophils 82.9 % (42.0-75.0); Hemoglobin 13.2 g/dL (12.0-16.0); Mean Corpuscular HGB CONC 35.6 g/dL (32.0-36.0); Mean Corpuscular Hemoglobin 35.1 pg (27.0-31.0); Mean Corpuscular Volume 98.5 fl (81.0-99.0); PLT Morphology Comment Appears Adequate; Platelet Count 119 thou/uL (130-400); RBC Distribution Width 11.4 % (11.5-14.5); Red Blood Cell (RBC) Count 3.77 mill/uL (4.20-5.40); White Blood Cell (WBC) Count 5.3 thou/uL (4.8-10.8)
[2018-04-08] MEDS: CEFAZOLIN 1 GM in Sodium Chloride 0.9% 100 ML IVPB SCH ×3 (06:16→22:18)
[2018-04-08] MEDS: HYDROcodone/Acetaminophen 10/325 mg Tablet PO PRN ×3 (06:24→22:19)
[2018-04-08] MEDS: Aspirin 81 mg Enteric Coated Tablet PO SCH (07:47)
[2018-04-08] MEDS: Multivit, Therapeutic 1 TAB PO SCH (07:47)
[2018-04-08] MEDS: Lisinopril 10 MG TAB PO SCH (07:47)
--- NOTE | 2018-04-08 12:17 | PDOC.PN ---
- Subjective Encounter Start Date: 04/08/18 Encounter Start Time: 12:15 Subjective: feels ok but has more pain in the operated leg w some oozing over dressings - Objective MAR Reviewed: Yes Vital Signs & Weight: Vital Signs (12 hours) Temp Pulse Resp BP BP Pulse Ox 04/08/18 11:03 98.1 F 66 14 131/82 98 04/08/18 08:00 98 F 67 16 98 04/08/18 07:47 168/85 H 04/08/18 07:07 98 F 67 16 168/85 H 98 04/08/18 06:22 50 L 175/80 H 04/08/18 04:50 98.4 F 50 L 16 175/80 H 97 Weight Weight 151 lb Result Diagrams: 04/08/18 03:50 04/08/18 03:50 Additional Labs: Microbiology 04/07/18 15:33 Leg - Right Bacterial Culture - Preliminary 04/07/18 15:33 Leg - Right Staphylococcus aureus 04/07/18 15:33 Ankle - Right Bacterial Culture - Preliminary 04/07/18 15:33 Ankle - Right Staphylococcus aureus 04/07/18 15:33 Ankle - Right Bacterial Culture - Preliminary LABS REVIEWED Phys Exam - Physical Examination Constitutional: NAD uncomfortable due to pain HEENT: PERRLA, moist MMs, sclera anicteric, oral pharynx no lesions Neck: no nodes, no JVD, supple, full ROM Respiratory: no wheezing, no rales, no rhonchi, clear to auscultation bilateral Cardiovascular: RRR, no significant murmur Gastrointestinal: soft, non-tender, no distention, positive bowel sounds Musculoskeletal: no edema, pulses present Neurological: non-focal, normal sensation, moves all 4 limbs Psychiatric: normal affect, A&O x 3 Skin: no rash Dx/Plan (1) Uncontrolled hypertension Code(s): I10 - ESSENTIAL (PRIMARY) HYPERTENSION Status: Acute (2) Infected hardware in right lower extremity Code(s): T84.7XXA - INFECT/INFLM REACT DUE TO OTH INT ORTH PROSTH DEV/GRFT, INIT Status: Acute (3) Thrombocytopenia Code(s): D69.6 - THROMBOCYTOPENIA, UNSPECIFIED Status: Acute (4) S/P hardware removal Code(s): Z98.890 - OTHER SPECIFIED POSTPROCEDURAL STATES Status: Acute Comment: R ankle - Plan continue antibiotics, PT/OT, out of bed/ambulate, DVT proph w/SCDs BP high due to pain.cont current regimen and monitor -: Staph aureus 2/2 in leg wound Cx. -: would recommend adding MRSA coverage .will consult ID -: platelet counts low today.monitor.not on any heparin products -: if platelet counts stable tomorrow,add DVt prophylaxis. * .am labs Review of Systems - Review of Systems Constitutional: weakness, malaise Eyes: negative: Pain, Vision Change, Conjunctivae Inflammation, Eyelid Inflammation, Redness, Other ENT: negative: Ear Pain, Ear Discharge, Nose Pain, Nose Discharge, Nose Congestion, Mouth Pain, Mouth Swelling, Throat Pain, Throat Swelling, Other Respiratory: negative: Cough, Dry, Shortness of Breath, Hemoptysis, SOB with Excertion, Pleuritic Pain, Sputum, Wheezing Cardiovascular: negative: chest pain, palpitations, orthopnea, paroxysmal nocturnal dyspnea, edema, light headedness, other Gastrointestinal: negative: Nausea, Vomiting, Abdominal Pain, Diarrhea, Constipation, Melena, Hematochezia, Other Genitourinary: negative: Dysuria, Frequency, Incontinence, Hematuria, Retention , Other Musculoskeletal: Leg Pain. negative: Neck Pain, Shoulder Pain, Arm Pain, Back Pain, Hand Pain, Foot Pain, Other Skin: negative: Rash, Lesions, West, Bruising, Other Neurological: negative: Weakness, Numbness, Incoordination, Change in Speech, Confusion, Seizures, Other - Medications/Allergies Allergies/Adverse Reactions: Allergies Allergy/AdvReac Type Severity Reaction Status Date / Time No Known Drug Allergies Allergy Verified 04/03/18 14:22 Medications: Current Medications Acetaminophen (Tylenol) 650 mg PO Q6H PRN PRN Reason: Headache/Temp >101F/Mild Pain Hydrocodone Bitart/Acetaminophen ([place] 10/325) 1 tab PO Q4H PRN PRN Reason: Moderate Pain (4-6) Hydrocodone Bitart/Acetaminophen ([place] 10/325) 2 tab PO Q4H PRN PRN Reason: Severe Pain (7-10) Last Admin: 04/08/18 06:24 Dose: 2 tab Aspirin (Ecotrin) 81 mg PO BID [facility] Last Admin: 04/08/18 07:47 Dose: 81 mg Clonidine (Catapres) 0.1 mg PO Q4H PRN PRN Reason: SBP>160 Hydralazine HCl (Apresoline) 10 mg SLOW IVP Q4H PRN PRN Reason: SBP>170 Last Admin: 04/08/18 06:22 Dose: 10 mg Cefazolin Sodium 1 gm/ Sodium (Chloride) 100 mls @ 200 mls/hr IVPB Q8HR [facility] Stop: 04/12/18 14:29 Last Admin: 04/08/18 06:16 Dose: 100 mls Levofloxacin (Levaquin) 750 mg PO 0600 [facility] Stop: 04/12/18 06:01 Last Admin: 04/08/18 06:16 Dose: 750 mg Lisinopril (Zestril) 10 mg PO DAILY [facility] Last Admin: 04/08/18 07:47 Dose: 10 mg Miscellaneous Information (Communication Order-Pharmacy) 1 each FS ONE [facility] Stop: 04/17/18 16:31 Morphine Sulfate (Morphine) 2 mg IVP Q2H PRN PRN Reason: Moderate Pain (4-6) Morphine Sulfate (Morphine) 4 mg IVP Q2H PRN PRN Reason: Severe Pain (7-10) Multivitamins (Theragran) 1 tab PO DAILY [facility] Last Admin: 04/08/18 07:47 Dose: 1 tab Ondansetron HCl (Zofran) 4 mg PO Q6H PRN PRN Reason: Nausea Ondansetron HCl (Zofran) 4 mg IV Q6H PRN PRN Reason: Nausea Sodium Chloride (Flush - Normal Saline) 10 ml IVF PRN PRN PRN Reason: Saline Flush Tramadol HCl (Ultram) 100 mg PO Q6H PRN PRN Reason: Moderate Pain (4-6) Tramadol HCl (Ultram) 50 mg PO Q6H PRN PRN Reason: Mild Pain (1-3)
--- NOTE | 2018-04-08 13:51 | PRG ---
DATE OF SERVICE: 04/08/2018 Ms. Alvarez has good pain control. She is doing well after surgery. The patient has been afebrile. Vital signs have been stable except for blood pressure is a little el evated. Hospitalist was consulted and feels is due more to pain. Dressing is on intact. The right foot is neurovascularly intact. Microbiology shows a staph species. Sensitivities are pending. The Hospitalist has consulted Infectious Disease doctor, Dr. Alfonso. We will see what he recommends o n antibiotics. We will continue the patient with IV antibiotics, pending sensitivities.
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
[2018-04-09 04:32] LABS: #Basophils 0.1 thou/uL (0.0-0.2); #Eosinphils 0.1 thou/uL (0.0-0.7); #Lymphocytes 2.3 thou/uL (1.20-3.40); #Monocytes 0.5 thou/uL (0.11-0.59); #Neutrophils 2.9 thou/uL (1.40-6.50); %Basophils 0.9 % (0.0-1.0); %Eosinophils 1.2 % (0.0-10.0); %Lymphocytes 40.1 % (21.0-51.0); %Neutrophils 49.8 % (42.0-75.0); Hemoglobin 12.7 g/dL (12.0-16.0); Mean Corpuscular HGB CONC 34.5 g/dL (32.0-36.0); Platelet Count 118 thou/uL (130-400); RBC Distribution Width 11.7 % (11.5-14.5); Red Blood Cell (RBC) Count 3.64 mill/uL (4.20-5.40); White Blood Cell (WBC) Count 5.8 thou/uL (4.8-10.8)
[2018-04-09 04:33] LABS: Anion Gap 12 mmol/L (10-20); BUN (Urea Nitrogen) 15 mg/dL (9.8-20.1); Calc. Creatinine Clearance 98 mL/min (70-130); Calcium 8.7 mg/dL (7.8-10.44); Carbon Dioxide 26 mmol/L (22-29); Chloride 105 mmol/L (98-107); Estimated GFR-MDRD 86; Glucose 100 mg/dL (70-105); Potassium 4.8 mmol/L (3.5-5.1); Sodium 138 mmol/L (136-145)
[2018-04-09] MEDS: CEFAZOLIN 1 GM in Sodium Chloride 0.9% 100 ML IVPB SCH (06:24)
[2018-04-09] MEDS: HYDROcodone/Acetaminophen 10/325 mg Tablet PO PRN ×2 (06:28→21:01)
[2018-04-09] MEDS: Multivit, Therapeutic 1 TAB PO SCH (08:24)
[2018-04-09] MEDS: Lisinopril 10 MG TAB PO SCH (08:24)
[2018-04-09] MEDS ORDERED: VANCOMYCIN IVPB PRN (09:24)
--- NOTE | 2018-04-09 11:26 | SPC ---
SONOGRAPHICALLY GUIDED LEFT UPPER EXTREMITY PICC: History: Ankle infection. FINDINGS: After explaining the procedure and answering all questions, the left upper extremity was prepped and draped in the usual sterile fashion. Sterile technique and buffered local anesthesia, sonographic gaby dance, and a 22 gauge needle were used to carefully access the left cephalic vein. Standard technique was then used to place the tip of a 5 [place] single lumen PICC so that the tip lies at the level of the right atrium. Catheter was flushed and secured externally. Patient tolerated the procedure well a nd was returned in unchanged condition. Fluoro time = 0 seconds. IMPRESSION: Technically successful left upper extremity PICC. Catheter is now ready for use. POS: [facility]
[2018-04-09] MEDS: Vancomycin HCl 1 GM in Premix Bag 1 BAG IVPB SCH ×2 (11:33→21:00)
--- NOTE | 2018-04-09 12:34 | PDOC.PN ---
- Subjective Encounter Start Date: 04/09/18 Encounter Start Time: 12:32 Subjective: feels weak.no nausea/vomiting - Objective MAR Reviewed: Yes Vital Signs & Weight: Vital Signs (12 hours) Temp Pulse Resp BP BP Pulse Ox 04/09/18 08:27 182/106 H 04/09/18 08:24 182/106 H 04/09/18 07:30 97.5 F L 86 16 182/106 H 98 04/09/18 00:43 97.6 F 64 18 119/75 96 Weight Weight 151 lb Result Diagrams: 04/09/18 03:27 04/09/18 03:27 Additional Labs: Microbiology 04/07/18 15:33 Leg - Right Bacterial Culture - Preliminary 04/07/18 15:33 Leg - Right Methicillin resistant S.aureus 04/07/18 15:33 Ankle - Right Bacterial Culture - Preliminary 04/07/18 15:33 Ankle - Right Methicillin resistant S.aureus Phys Exam - Physical Examination Constitutional: NAD HEENT: PERRLA, moist MMs, sclera anicteric, oral pharynx no lesions Neck: no nodes, no JVD, supple, full ROM Respiratory: no wheezing, no rales, no rhonchi, clear to auscultation bilateral Cardiovascular: RRR, no significant murmur, no rub Gastrointestinal: soft, non-tender, no distention, positive bowel sounds Musculoskeletal: no edema, pulses present Neurological: non-focal, normal sensation, moves all 4 limbs Psychiatric: normal affect, A&O x 3 Skin: no rash Dx/Plan (1) Infected hardware in right lower extremity Code(s): T84.7XXA - INFECT/INFLM REACT DUE TO OTH INT ORTH PROSTH DEV/GRFT, INIT Status: Acute Comment: MRSA (2) Uncontrolled hypertension Code(s): I10 - ESSENTIAL (PRIMARY) HYPERTENSION Status: Acute (3) Thrombocytopenia Code(s): D69.6 - THROMBOCYTOPENIA, UNSPECIFIED Status: Acute (4) S/P hardware removal Code(s): Z98.890 - OTHER SPECIFIED POSTPROCEDURAL STATES Status: Acute Comment: R ankle - Plan DVT proph w/SCDs change antibiotics to vancomycin.Stop ancef and levaquin.PICC placed -: Abx duration per ID. -: BP spikes w pain,O/W controlled.cont current meds as below -: will follow.monitor CBC,CMp on ABX * . Review of Systems - Review of Systems Constitutional: weakness, malaise. negative: fever, chills, sweats, other Respiratory: negative: Cough, Dry, Shortness of Breath, Hemoptysis, SOB with Excertion, Pleuritic Pain, Sputum, Wheezing Gastrointestinal: negative: Nausea, Vomiting, Abdominal Pain, Diarrhea, Constipation, Melena, Hematochezia, Other Genitourinary: negative: Dysuria, Frequency, Incontinence, Hematuria, Retention , Other Musculoskeletal: Leg Pain. negative: Neck Pain, Shoulder Pain, Arm Pain, Back Pain, Hand Pain, Foot Pain, Other Skin: negative: Rash, Lesions, West, Bruising, Other Neurological: negative: Weakness, Numbness, Incoordination, Change in Speech, Confusion, Seizures, Other - Medications/Allergies Allergies/Adverse Reactions: Allergies Allergy/AdvReac Type Severity Reaction Status Date / Time No Known Drug Allergies Allergy Verified 04/03/18 14:22 Medications: Current Medications Acetaminophen (Tylenol) 650 mg PO Q6H PRN PRN Reason: Headache/Temp >101F/Mild Pain Hydrocodone Bitart/Acetaminophen ([place] 10/325) 1 tab PO Q4H PRN PRN Reason: Moderate Pain (4-6) Hydrocodone Bitart/Acetaminophen ([place] 10/325) 2 tab PO Q4H PRN PRN Reason: Severe Pain (7-10) Last Admin: 04/09/18 06:28 Dose: 2 tab Aspirin (Ecotrin) 81 mg PO BID [facility] Clonidine (Catapres) 0.1 mg PO Q4H PRN PRN Reason: SBP>160 Last Admin: 04/09/18 08:27 Dose: 0.1 mg Hydralazine HCl (Apresoline) 10 mg SLOW IVP Q4H PRN PRN Reason: SBP>170 Last Admin: 04/08/18 06:22 Dose: 10 mg Vancomycin HCl 1 gm/ Device 200 mls @ 200 mls/hr IVPB Q12HR [facility] Last Admin: 04/09/18 11:33 Dose: 200 mls Lisinopril (Zestril) 10 mg PO DAILY [facility] Last Admin: 04/09/18 08:24 Dose: 10 mg Miscellaneous Information (Communication Order-Pharmacy) 1 each FS ONE [facility] Stop: 04/17/18 16:31 Miscellaneous Medication (Pharmacy To Dose) 1 each IVPB PRN PRN PRN Reason: Pharmacy to dose Morphine Sulfate (Morphine) 2 mg IVP Q2H PRN PRN Reason: Moderate Pain (4-6) Morphine Sulfate (Morphine) 4 mg IVP Q2H PRN PRN Reason: Severe Pain (7-10) Multivitamins (Theragran) 1 tab PO DAILY [facility] Last Admin: 04/09/18 08:24 Dose: 1 tab Ondansetron HCl (Zofran) 4 mg PO Q6H PRN PRN Reason: Nausea Ondansetron HCl (Zofran) 4 mg IV Q6H PRN PRN Reason: Nausea Sodium Chloride (Flush - Normal Saline) 10 ml IVF PRN PRN PRN Reason: Saline Flush Tramadol HCl (Ultram) 100 mg PO Q6H PRN PRN Reason: Moderate Pain (4-6) Tramadol HCl (Ultram) 50 mg PO Q6H PRN PRN Reason: Mild Pain (1-3)
[2018-04-09] MEDS: Aspirin 81 mg Enteric Coated Tablet PO SCH (21:01)
--- NOTE | 2018-04-10 01:36 | PRG ---
DATE OF SERVICE: 04/09/2018 SUBJECTIVE: Ms. Alvarez is 2 days status post irrigation, debridement, and obtaining deep cultures from the lateral aspect of the right ankle. The patient has been taking hydrocodone for pain. She h as been up ambulating. OBJECTIVE: VITAL SIGNS: She has been afebrile. Vital signs have been stable. Dressing was changed to the right ankle and knee incision is healing well. There is no erythema, no active drainage. The right foot is neurovascularly intact. LABORATORY DATA: White count this morning 5.8, hemoglobin 12.7, hematocrit 36.9. All chemistries we re normal. Microbiology showed methicillin-resistant Staph aureus. IMPRESSION: The patient has methicillin-resistant Staphylococcus aureus infection from the distal fi bula, i.e., osteomyelitis. PLAN: Dr. Alfonso has been kind enough to consult on the patient, he has already made arrangements for her to have a PICC line which she had earlier today. He will make arrangements for her to have the appropriate antibiotics. I wrote a prescription for [place] 10 one every 8 hours as needed for pain, # 50. She will follow up in my office in 2 weeks to have the sutures removed if she has any problems p rior to that she is to come in earlier.
[2018-04-10 05:05] LABS: #Basophils 0.1 thou/uL (0.0-0.2); #Eosinphils 0.1 thou/uL (0.0-0.7); #Lymphocytes 1.9 thou/uL (1.20-3.40); #Monocytes 0.5 thou/uL (0.11-0.59); #Neutrophils 2.1 thou/uL (1.40-6.50); %Basophils 1.3 % (0.0-1.0); %Lymphocytes 40.8 % (21.0-51.0); %Monocytes 10.3 % (0.0-10.0); %Neutrophils 44.7 % (42.0-75.0); Hemoglobin 12.8 g/dL (12.0-16.0); Mean Corpuscular HGB CONC 34.4 g/dL (32.0-36.0); Mean Corpuscular Hemoglobin 34.5 pg (27.0-31.0); Mean Platelet Volume 7.8 fL (7.4-10.4); Platelet Count 117 thou/uL (130-400); RBC Distribution Width 11.6 % (11.5-14.5); Red Blood Cell (RBC) Count 3.69 mill/uL (4.20-5.40); White Blood Cell (WBC) Count 4.7 thou/uL (4.8-10.8)
[2018-04-10 05:15] LABS: Anion Gap 10 mmol/L (10-20); BUN (Urea Nitrogen) 15 mg/dL (9.8-20.1); Calc. Creatinine Clearance 97 mL/min (70-130); Calcium 9.2 mg/dL (7.8-10.44); Carbon Dioxide 29 mmol/L (22-29); Chloride 103 mmol/L (98-107); Estimated GFR-MDRD 84; Glucose 95 mg/dL (70-105); Potassium 4.4 mmol/L (3.5-5.1); Sodium 138 mmol/L (136-145)
--- NOTE | 2018-04-10 08:31 | PRG ---
DATE OF SERVICE: 04/09/2018 SUBJECTIVE: The patient is doing well, a little bit of pain in the ankle. No respiratory symptoms, no abdominal pain, no diarrhea. OBJECTIVE: VITAL SIGNS: Normal except for a slight elevation in systolic blood pressure. LUNGS: Clear. HEART: S1 and S2, regular rate. ABDOMEN: Soft, not distended. EXTREMITIES: Foot covered with a splint and dressing. LABORATORY DATA: White cell count 5.8, hemoglobin 12, platelets 118. The differential is normal. C hemistry is normal. Microbiology revealed methicillin-resistant Staphylococcus aureus. DISCUSSION: Liver disease secondary to alcoholism, fracture of right ankle with surgery and fixation last year, now with evidence of infection, likely osteomyelitis, inflammatory process, which develop ed for the past few weeks and culminating in this admission. Operative intervention, removal of hard briones, plate and screws of the right distal fibula with no MRSA isolated from the site. We will trans ition patient to daptomycin and Oncology with same duration and same labs with the addition of CPK fo r monitoring for daptomycin toxicity.
[2018-04-10] MEDS: HYDROcodone/Acetaminophen 10/325 mg Tablet PO PRN (10:45)
[2018-04-10] MEDS: Aspirin 81 mg Enteric Coated Tablet PO SCH (10:46)
[2018-04-10] MEDS: Vancomycin HCl 1 GM in Premix Bag 1 BAG IVPB SCH (10:46)
[2018-04-10] MEDS: Multivit, Therapeutic 1 TAB PO SCH (10:46)
[2018-04-10] MEDS: Lisinopril 10 MG TAB PO SCH (10:46)
[2018-04-10 11:33] VITALS: BP 128/84; TEMP 98.7
--- NOTE | 2018-04-10 12:45 | PDOC.PN ---
- Subjective Encounter Start Date: 04/10/18 Encounter Start Time: 12:43 Subjective: feels much better. still pain in the leg but improving -: cleraed for Dc by primary team - Objective MAR Reviewed: Yes Vital Signs & Weight: Vital Signs (12 hours) Temp Pulse Resp BP Pulse Ox 04/10/18 11:17 98.7 F 73 16 128/84 96 04/10/18 07:36 97.7 F 70 18 147/75 H 97 04/10/18 04:54 98 04/10/18 03:51 97.9 F 65 16 151/85 H 98 Weight Weight 151 lb Result Diagrams: 04/10/18 04:20 04/10/18 04:20 Additional Labs: Microbiology 04/07/18 15:33 Leg - Right Bacterial Culture - Preliminary 04/07/18 15:33 Leg - Right Anaerobic Culture - Preliminary Methicillin resistant S.aureus 04/07/18 15:33 Ankle - Right Bacterial Culture - Preliminary 04/07/18 15:33 Ankle - Right Anaerobic Culture - Preliminary Methicillin resistant S.aureus Phys Exam - Physical Examination Constitutional: NAD HEENT: PERRLA, moist MMs, sclera anicteric, oral pharynx no lesions Neck: no nodes, no JVD, supple, full ROM Respiratory: no wheezing, no rales, no rhonchi, clear to auscultation bilateral Cardiovascular: RRR, no significant murmur, no rub Gastrointestinal: soft, non-tender, no distention, positive bowel sounds Musculoskeletal: no edema, pulses present Psychiatric: normal affect, A&O x 3 Skin: no rash Dx/Plan (1) Infected hardware in right lower extremity Code(s): T84.7XXA - INFECT/INFLM REACT DUE TO OTH INT ORTH PROSTH DEV/GRFT, INIT Status: Acute Comment: MRSA (2) Uncontrolled hypertension Code(s): I10 - ESSENTIAL (PRIMARY) HYPERTENSION Status: Acute (3) Thrombocytopenia Code(s): D69.6 - THROMBOCYTOPENIA, UNSPECIFIED Status: Acute (4) S/P hardware removal Code(s): Z98.890 - OTHER SPECIFIED POSTPROCEDURAL STATES Status: Acute Comment: R ankle - Plan continue antibiotics, out of bed/ambulate BP on higher side but due to pain.cont lisinopril -: Pt advised to monitor BP at home & take additional pill for elevated BP -: F/U w PCP. -: ABx per ID for mrsa leg hardware infection for protracted period -: Ok to DC from IM stand point * . Review of Systems - Review of Systems Constitutional: negative: fever, chills, sweats, weakness, malaise, other ENT: negative: Ear Pain, Ear Discharge, Nose Pain, Nose Discharge, Nose Congestion, Mouth Pain, Mouth Swelling, Throat Pain, Throat Swelling, Other Respiratory: negative: Cough, Dry, Shortness of Breath, Hemoptysis, SOB with Excertion, Pleuritic Pain, Sputum, Wheezing Cardiovascular: negative: chest pain, palpitations, orthopnea, paroxysmal nocturnal dyspnea, edema, light headedness, other Gastrointestinal: negative: Nausea, Vomiting, Abdominal Pain, Diarrhea, Constipation, Melena, Hematochezia, Other Genitourinary: negative: Dysuria, Frequency, Incontinence, Hematuria, Retention , Other Musculoskeletal: negative: Neck Pain, Shoulder Pain, Arm Pain, Back Pain, Hand Pain, Leg Pain, Foot Pain, Other Neurological: negative: Weakness, Numbness, Incoordination, Change in Speech, Confusion, Seizures, Other - Medications/Allergies Allergies/Adverse Reactions: Allergies Allergy/AdvReac Type Severity Reaction Status Date / Time No Known Drug Allergies Allergy Verified 04/03/18 14:22 Medications: Current Medications Acetaminophen (Tylenol) 650 mg PO Q6H PRN PRN Reason: Headache/Temp >101F/Mild Pain Hydrocodone Bitart/Acetaminophen ([place] 10/325) 1 tab PO Q4H PRN PRN Reason: Moderate Pain (4-6) Hydrocodone Bitart/Acetaminophen ([place] 10/325) 2 tab PO Q4H PRN PRN Reason: Severe Pain (7-10) Last Admin: 04/10/18 10:45 Dose: 2 tab Aspirin (Ecotrin) 81 mg PO BID LUIS Last Admin: 04/10/18 10:46 Dose: 81 mg Clonidine (Catapres) 0.1 mg PO Q4H PRN PRN Reason: SBP>160 Last Admin: 04/09/18 08:27 Dose: 0.1 mg Hydralazine HCl (Apresoline) 10 mg SLOW IVP Q4H PRN PRN Reason: SBP>170 Last Admin: 04/08/18 06:22 Dose: 10 mg Vancomycin HCl 1 gm/ Device 200 mls @ 200 mls/hr IVPB Q12HR [facility] Last Admin: 04/10/18 10:46 Dose: 200 mls Lisinopril (Zestril) 10 mg PO DAILY [facility] Last Admin: 04/10/18 10:46 Dose: 10 mg Miscellaneous Information (Communication Order-Pharmacy) 1 each FS ONE [facility] Stop: 04/17/18 16:31 Miscellaneous Medication (Pharmacy To Dose) 1 each IVPB PRN PRN PRN Reason: Pharmacy to dose Morphine Sulfate (Morphine) 2 mg IVP Q2H PRN PRN Reason: Moderate Pain (4-6) Morphine Sulfate (Morphine) 4 mg IVP Q2H PRN PRN Reason: Severe Pain (7-10) Multivitamins (Theragran) 1 tab PO DAILY [facility] Last Admin: 04/10/18 10:46 Dose: 1 tab Ondansetron HCl (Zofran) 4 mg PO Q6H PRN PRN Reason: Nausea Ondansetron HCl (Zofran) 4 mg IV Q6H PRN PRN Reason: Nausea Sodium Chloride (Flush - Normal Saline) 10 ml IVF PRN PRN PRN Reason: Saline Flush Last Admin: 04/09/18 21:00 Dose: 10 ml Tramadol HCl (Ultram) 100 mg PO Q6H PRN PRN Reason: Moderate Pain (4-6) Tramadol HCl (Ultram) 50 mg PO Q6H PRN PRN Reason: Mild Pain (1-3)
[2018-04-10] MEDS ORDERED: Heparin 1,000 UNITS/ML VIAL ONE (18:13)
== END 2018-04-10 13:00 | disposition home or self-care (01) | DRG 496 ==
LOC: SDC 11:21 → SURG A 16:37
PROVIDERS: ADMIT Orthopaedic Surgery; ATTEND Orthopaedic Surgery
PROC: 0QPJ04Z Removal of Internal Fixation Device from Right Fibula, Open Approach (ICD-10-PCS; principal; 2018-04-07)
PROC: 0Y9K0ZX Drainage of Right Ankle Region, Open Approach, Diagnostic (ICD-10-PCS; 2018-04-07)
PROC: 02HV33Z Insertion of Infusion Device into Superior Vena Cava, Percutaneous Approach (ICD-10-PCS; 2018-04-09)
PROC: B548ZZA Ultrasonography of Superior Vena Cava, Guidance (ICD-10-PCS; 2018-04-09)
DX: T84.624A Infection and inflammatory reaction due to internal fixation device of right fibula, initial encounter (principal); M86.171 Other acute osteomyelitis, right ankle and foot; B95.62 Methicillin resistant Staphylococcus aureus infection as the cause of diseases classified elsewhere; I10 Essential (primary) hypertension; D69.6 Thrombocytopenia, unspecified; K70.30 Alcoholic cirrhosis of liver without ascites; F10.10 Alcohol abuse, uncomplicated
CPT/HCPCS: 36415; 36569; 76000; 80048; 85025; 87070; 87077; 87186; 87205; J0360; J0690; J1100; J1644; J1885; J2001; J2405; J2704; J3010; J3370; J7050

== ENCOUNTER → 2018-04-11 | Day surgery (SDC) | payer OTHER ==
[~2018-04-11] MED LIST changes: +DAPTOMYCIN SLOW IVP SCH; -Sodium Chloride 0.9% 15 ML NEB ONE
[2018-04-11 14:19] VITALS: BP 154/94; TEMP 98.8
== END ==
LOC: ONC/OP 13:30
PROVIDERS: ATTEND Internal Medicine Infectious Disease
DX: T81.89XA Other complications of procedures, not elsewhere classified, initial encounter (principal)
CPT/HCPCS: 96374; J0878

== ENCOUNTER 2022-07-02 07:13 | Emergency (ER) | payer SELFPAY | END 2022-07-02 11:43 | disposition home or self-care (01) | LOC: ERS 07:13 | DX: S20.211A Contusion of right front wall of thorax, initial encounter (principal); I10 Essential (primary) hypertension; W10.8XXA Fall (on) (from) other stairs and steps, initial encounter | CPT/HCPCS: 71046 ==